=== PATIENT | female | born 1935 | race Caucasian/White ===

== ENCOUNTER → 2016-12-19 | Outpatient (CLI) | payer MEDICARE ==
[2016-12-19 09:07] LABS: BASOPHILS % (AUTO) 1 % (0-2); EOSINOPHILS # (AUTO) 0.2 10^3uL; EOSINOPHILS % (AUTO) 4 % (0-4); LYMPHOCYTES # (AUTO) 1.5 X10^3; MEAN CORPUSCULAR HGB CONC 32.4 g/dL (31.0-37.0); MEAN CORPUSCULAR VOLUME 97 FL (80-100); MEAN PLATELET VOLUME 10.9 FL (6.0-9.5); MONOCYTES # (AUTO) 0.7 X10^3; MONOCYTES % (AUTO) 13 % (3-11); NEUTROPHILS % (AUTO) 55 % (51-67); PLATELET COUNT 127 10^3uL (150-450); WHITE BLOOD COUNT 5.47 10^3uL (4.0-11.0)
[2016-12-19 09:11] LABS: MEAN CORPUSCULAR HEMOGLOBIN 31.3 PG (26.0-34.0)
[2016-12-19 09:48] LABS: ALBUMIN 4.3 g/dL (3.4-5.0); ANION GAP 16.5 MEQ/L (3-15); CALCULATED IONIZED CALCIUM 3.8 mg/dL (3.8-4.6); TOTAL PROTEIN 8.2 g/dL (6.4-8.5)
== END ==
LOC: LAB 08:36
PROVIDERS: ATTEND Internal Medicine
DX: Z00.00 Encounter for general adult medical examination without abnormal findings (principal); J47.9 Bronchiectasis, uncomplicated; R10.13 Epigastric pain; R03.0 Elevated blood-pressure reading, without diagnosis of hypertension; I10 Essential (primary) hypertension
CPT/HCPCS: 36415; 80053; 80061; 84443; 85025

== ENCOUNTER → 2016-12-22 | Outpatient (CLI) | payer MEDICARE ==
[2016-12-22 12:16] LABS: BILIRUBIN,URINE Negative (Negative); CLARITY,URINE Cloudy; COLOR,URINE Brown; GLUCOSE, URINE (UA) Negative (Negative); LEUKOCYTE ESTERASE ,URINE 3+ (Negative); PH,URINE 5.5 (5.0 - 8.0); UROBILINOGEN,URINE 0.2 mg/dL (0.2-1.0)
[2016-12-22 12:18] LABS: RBC,URINE TNTC /HPF; URINE CENTRIFUGED VOLUME <10mL Unspun
== END ==
LOC: LAB 11:57
PROVIDERS: ATTEND Internal Medicine
DX: R35.0 Frequency of micturition (principal); R82.99 Other abnormal findings in urine
CPT/HCPCS: 81003; 81015; 87077; 87088; 87186

== ENCOUNTER → 2017-01-04 | Outpatient (REF) | payer MEDICARE | LOC: LAB 09:33 → EDSTATUS 01-07 09:37 | PROVIDERS: ATTEND Internal Medicine | DX: R31.0 Gross hematuria (principal) | CPT/HCPCS: 87088 ==

== ENCOUNTER 2017-02-02 09:26 | Inpatient (IN) | payer MEDICARE ==
[~2017-02-02] VITALS: Ht 165.1 cm; Wt 63.4 kg
[2017-02-02] MEDS ORDERED: SODIUM CHLORIDE FLUSH 3 ML SYR IV PRN (10:00)
[2017-02-02] MEDS ORDERED: SODIUM CHLORIDE FLUSH 10 ML SYR IV PRN (10:00)
[2017-02-02] MEDS ORDERED: ONDANSETRON 2 MG/ML (Z0FRAN) 2 ML VIAL IV ONE (10:10)
[2017-02-02 10:16] LABS: BASOPHILS % (AUTO) 0 % (0-2); EOSINOPHILS # (AUTO) 0.1 10^3uL; EOSINOPHILS % (AUTO) 1 % (0-4); LYMPHOCYTES # (AUTO) 2.6 X10^3; MEAN CORPUSCULAR HGB CONC 33.2 g/dL (31.0-37.0); MEAN CORPUSCULAR VOLUME 94 FL (80-100); MONOCYTES # (AUTO) 1.4 X10^3; MONOCYTES % (AUTO) 14 % (3-11); NEUTROPHILS % (AUTO) 59 % (51-67); PLATELET COUNT 190 10^3uL (150-450)
[2017-02-02 10:26] LABS: ALBUMIN 5.3 g/dL (3.4-5.0); ANION GAP 28.7 MEQ/L (3-15); CALCULATED IONIZED CALCIUM 3.7 mg/dL (3.8-4.6); TOTAL PROTEIN 10.5 g/dL (6.4-8.5)
[2017-02-02] MEDS: OCTREOTIDE 100 MCG/ML (SandoSTATIN) 1 ML VIAL IV ONE ×2 (11:01→12:09)
[2017-02-02] MEDS ORDERED: DEXTROSE 50% 25 GM/50 ML SYRINGE IV ONE (11:45)
[2017-02-02] MEDS ORDERED: ALBUTEROL 0.5% NEB SOLUTION 2.5 MG/0.5 ML VIAL INH ONE (11:45)
[2017-02-02] MEDS ORDERED: INSULIN REGULAR 1 UNIT/0.01 ML DOSE SC ONE (11:45)
[2017-02-02] MEDS ORDERED: SODIUM CHLORIDE 0.9% NEB SOLN 3 ML VIAL ONE (11:58)
[2017-02-02 12:55] VITALS: BP 128/62
--- NOTE | 2017-02-02 12:57 | NUR ---
Patient admitted to room 315 per wheelchair from ER. Alert and able to ambulate with stand by assist. Fall precautions in place.
[2017-02-02 13:11] VITALS: BP 128/62
[2017-02-02] MEDS ORDERED: ACETAMINOPHEN 325 MG TAB (TYLENOL) PO PRN (13:50)
[2017-02-02] MEDS ORDERED: ONDANSETRON 2 MG/ML (Z0FRAN) 2 ML VIAL IV PRN (13:50)
--- NOTE | 2017-02-02 13:50 | NUR ---
Patient reports symptoms of sweating and feeling "flushed." Redness noted on face and chest. Skin is cool to touch. Blood glucose= 40.
--- NOTE | 2017-02-02 13:52 | NUR ---
Drank 4 ounces of orange juice. Patient is alert and speaks but moves very slowly. Able to drink juice without difficulty.
[2017-02-02] MEDS ORDERED: GLUCAGON EMERGENCY 1 MG/KIT ONE (13:53)
[2017-02-02 13:55] VITALS: BP 128/62
--- NOTE | 2017-02-02 13:55 | NUR ---
Gave 1 vial of GlucaGen SQ in the right upper arm.
--- NOTE | 2017-02-02 14:08 | NUR ---
Accu check= 48.
[2017-02-02] MEDS ORDERED: DEXTROSE ORAL GEL (GLUTOSE 40%) 15 GM TUBE PO PRN (14:10)
[2017-02-02] MEDS ORDERED: DEXTROSE 50% 25 GM/50 ML SYRINGE IV PRN (14:10)
[2017-02-02] MEDS ORDERED: GLUCAGON EMERGENCY 1 MG/KIT IM PRN (14:10)
[2017-02-02] MEDS ORDERED: HYDROcodone/APAP 7.5 MG/325 MG (NORCO) TABLET PO PRN (14:10)
--- NOTE | 2017-02-02 14:31 | NUR ---
Accu check= 79. Patient is speaking normally.
[2017-02-02 14:42] LABS: ANION GAP 24.5 MEQ/L (3-15)
--- NOTE | 2017-02-02 15:40 | NUR ---
Accu check= 113.
[2017-02-02 15:42] VITALS: BP 90/37
--- NOTE | 2017-02-02 16:05 | NUR ---
MED REC COMPLETE--current med list obtained from patient report (prescription bottles and pill boxes) and list provided by patient's PCP (Dr. Thomas).
[2017-02-02 17:00] VITALS: BP 110/50
--- NOTE | 2017-02-02 17:00 | NUR ---
V.S. rechecked. Systolic BP is over 100 at this time. Apical pulse still remains in the low 50's.
--- NOTE | 2017-02-02 17:45 | NUR ---
Accu check= 101. Patient has had no further complaints of flushing or sweating.
[2017-02-02 18:57] LABS: GLUCOSE, URINE (UA) Trace (Negative); LEUKOCYTE ESTERASE ,URINE Negative (Negative); UROBILINOGEN,URINE 0.2 mg/dL (0.2-1.0)
[2017-02-02 18:58] LABS: BILIRUBIN,URINE 1+ (Negative); CLARITY,URINE Slightly Cloudy; COLOR,URINE Dark Yellow; URINE CENTRIFUGED VOLUME 12 mL
--- NOTE | 2017-02-02 19:00 | NUR ---
Patient has finally voided 200 cc's- the first time since admission to the floor or the ER. Sample sent to lab.
[2017-02-02 19:03] LABS: RBC,URINE 20-50 /HPF
--- NOTE | 2017-02-02 20:37 | NUR ---
Pt placed on 2 l/min NC for noc per home use. IS instructed, 1200ml x 5 with good technique and breath hold.
--- NOTE | 2017-02-02 21:20 | NUR ---
Accucheck is 99 this evening; sliding scale insulin not ordered. Stool sample obtained and taken to lab. Pt. interactive with nighttime cares; preparing for sleep. Pt. is very pleasant and cooperative. O2 at 2L via NC for HS; pt. denies need for pain med at this time. Call light and H2O within reach.
[2017-02-03] VITALS: BP 99/50
--- NOTE | 2017-02-03 | NUR ---
Lab calls to report pt.'s stool sample positive for Norovirus. Contract Negotiation Manager notified; appropriate precautions taken. Pt. resting quietly; O2 at 2L for HS; resp are even and unlabored; appears to be in no distress. IVF infusing without difficulty; call light and H2O within reach.
[2017-02-03 06:05] LABS: MEAN CORPUSCULAR HEMOGLOBIN 31.2 PG (26.0-34.0); MEAN CORPUSCULAR HGB CONC 33.5 g/dL (31.0-37.0); MEAN CORPUSCULAR VOLUME 93 FL (80-100); MEAN PLATELET VOLUME 10.9 FL (6.0-9.5); PLATELET COUNT 156 10^3uL (150-450); WHITE BLOOD COUNT 6.74 10^3uL (4.0-11.0)
[2017-02-03 06:12] LABS: BAND NEUTROPHILS % 1 % (0-6); EOSINOPHILS % 1 % (0-4); LYMPHOCYTES # 1.7 #
[2017-02-03 06:13] LABS: MONOCYTES # 0.7 #; MONOCYTES % 12 % (3-11); RBC MORPH NORMAL (NORMAL); SEGMENTED NEUTROPHILS % 60 % (51-67); TOTAL CELLS COUNTED 100
[2017-02-03 06:28] VITALS: BP 146/54
--- NOTE | 2017-02-03 06:33 | NUR ---
Accucheck is 76 this morning; pt. is alert and orientated; denies discomfort; denies nausea; very cheerful. Pt. has called for stand by assist with ambulation PRN throughout the shift. Pt. proactive with ileostomy cares. Contact precautions observed. Telemetry has been sinus matt at rest; low 100's with activity. Pt. does not exhibit shortness of breath with ambulation or conversation. O2 at 2L via NC worn at HS only. H2O and call light within reach.
[2017-02-03 06:53] LABS: ALBUMIN 3.7 g/dL (3.4-5.0); CALCULATED IONIZED CALCIUM 3.6 mg/dL (3.8-4.6); TOTAL PROTEIN 7.3 g/dL (6.4-8.5)
[2017-02-03 07:46] VITALS: BP 106/56
--- NOTE | 2017-02-03 08:12 | NUR ---
NUTRITION ASSESSMENT Level 1 Patient: Shazia Briones Age/Sex: 81/F Date Screened: 02-03-17 Weight: 139.2#/63.3 kg Height: 65 inches Primary Diagnosis: renal injury Diet Order: CL Relevant labs: stool sample (+) norovirus, glucose 81 Food allergies: N Nutrition Assessment Criteria Age over 80: 4 points Body Mass Index (BMI) under 19: N Admission Screening Indicates Risk? N Moderate/High Risk Diagnosis: 3 points TPN or PPN: N NPO or clear liquid diet: Yes Serum Glucose <70 or >180: N Hgb A1c >6.7: N/A Total: 7 points Risk Screen: __ Patient at low nutritional risk based on available data; reevaluate in 5-7 days __ Patient at moderate nutritional risk based on available data; reevaluate in 3-5 days _X_ Patient at high nutritional risk; complete Nutrition Assessment within 48 hours of admission.
[2017-02-03] MEDS: predniSONE 5 MG (DELTASONE) TABLET PO SCH (08:38)
[2017-02-03] MEDS: CALCIUM CARBONATE CHEWABLE 300 MG (TUMS) TABLET PO SCH (08:38)
[2017-02-03] MEDS: LEFLUNOMIDE 10 MG TABLET PO SCH (08:39)
[2017-02-03] MEDS: ALBUTEROL/IPRATROPIUM 3MG-0.5MG/3ML (DUONEB) NEB VIAL INH SCH ×2 (09:03→21:00)
--- NOTE | 2017-02-03 10:46 | NUR ---
NUTRITION ASSESSMENT Level II Patient: Shazia Briones Age/Sex: 81/F Date Assessed: 02-03-17 ASSESSMENT Pertinent History: Patient admitted with renal injury from dehydration/norovirus and screened at high nutritional risk secondary to n/v/d and stated weight loss. However, compared with last documented weight in 2012 at 140#, pt. weighs the same. PMHx includes COPD, pancreatitis, rheumatoid arthritis, ulcerative colitis s/p ileostomy, diabetes, multiple compression fx's, nephrolithiasis and CHF. She lives at home with her . Meds/Nutrition: Prednisone, NS Weight: 139.2#/63.3 kg Height: 65 inches Body Mass Index (BMI): 23.2 [place] Body Weight : 125#/56.8 kg % IBW: 111% GASTROINTESTINAL Appetite: improving, eating 75-100% CL now Diet Order: CL Unintentional loss of >10 lbs. in 3 months: N Difficult to chew/swallow: N Diabetes: Yes Relevant Labs: glucose 81, stool sample (+) norovirus Calculations for Nutritional Assessment Estimated calorie needs: 25-28 kcals/kg = 1,575-1,760 kcals Estimated protein needs: 1.0-1.1 g/kg = 63-69 g./day DIAGNOSIS 1. Nutrition Diagnosis: acute inadequate intake related to acute illness as evidenced by n/v/d and norovirus with weakness. NUTRITIONAL INTERVENTION Goal: Patient will receive adequate nutrition to meet her needs. Plan: Will monitor intake for adequacy and tolerance to diet as advanced. MONITORING & EVALUATION __ Monitor patients menu selections _X_ Monitor patients food intake per nursing notes _X_ Monitor NPO/clear liquid days _X_ Monitor lab values __ Monitor I&O __ Other
--- NOTE | 2017-02-03 11:37 | NUR ---
Pt working with Diego LU. Keegan dc'd at this time as ordered.
[2017-02-03 12:00] VITALS: BP 112/50
[2017-02-03 16:30] VITALS: BP 120/60
--- NOTE | 2017-02-03 18:41 | NUR ---
Pt resting in bed, remains on RA. Denies needs. Ate 50% Regular supper meal. Denies n/v.
--- NOTE | 2017-02-03 20:00 | NUR ---
Resting in bed. Is alert and oriented. Skin warm and dry. Cheeks pink. Has low grade temp, but does not want any Tylenol. Denies any discomforts. IV patent at 100 cc an hour without complications at site. Call light within reach.
--- NOTE | 2017-02-03 20:26 | NUR ---
Pt found on RA while lying in bed, SPO2 98%, HR 68, RR 16 and non labored. BS clear. Pt does not want respiratory Tx tonight so as to keep with her home regimen.
--- NOTE | 2017-02-03 21:00 | NUR ---
Accu Check 107mg/dl. HS cares given Ileostomy bag emptied earlier. Denies pain or nausea.
[2017-02-04 00:39] VITALS: BP 121/55
[2017-02-04 05:47] LABS: MEAN CORPUSCULAR HEMOGLOBIN 30.9 PG (26.0-34.0); MEAN CORPUSCULAR HGB CONC 32.5 g/dL (31.0-37.0); MEAN CORPUSCULAR VOLUME 95 FL (80-100); MEAN PLATELET VOLUME 10.7 FL (6.0-9.5); PLATELET COUNT 142 10^3uL (150-450); WHITE BLOOD COUNT 5.96 10^3uL (4.0-11.0)
[2017-02-04 05:57] LABS: ANION GAP 10.9 MEQ/L (3-15)
--- NOTE | 2017-02-04 06:01 | NUR ---
Acu Check 75 mg/dl this morning. Patient felt like she rested well during the night. Did rest at longer intervals tonight, than last night. Denies pain or nausea. Ileostomy drain bile colored liquid. Droplet precautions maintained. Call light within reach.
[2017-02-04 06:18] LABS: BAND NEUTROPHILS % 3 % (0-6); LYMPHOCYTES # 1.7 #; MONOCYTES # 0.3 #; MONOCYTES % 6 % (3-11); SEGMENTED NEUTROPHILS % 60 % (51-67)
[2017-02-04 06:19] LABS: EOSINOPHILS % 2 % (0-4); RBC MORPH NORMAL (NORMAL); TOTAL CELLS COUNTED 100
[2017-02-04] MEDS: ALBUTEROL/IPRATROPIUM 3MG-0.5MG/3ML (DUONEB) NEB VIAL INH SCH ×2 (07:39→07:41)
--- NOTE | 2017-02-04 07:41 | NUR ---
Pt is awake and alert, sitting in recliner, tolerated tx well, on room air, SPO2 95%
[2017-02-04 07:43] VITALS: BP 130/52
[2017-02-04] MEDS: CALCIUM CARBONATE CHEWABLE 300 MG (TUMS) TABLET PO SCH (08:05)
[2017-02-04] MEDS: predniSONE 5 MG (DELTASONE) TABLET PO SCH (08:05)
[2017-02-04] MEDS: LEFLUNOMIDE 10 MG TABLET PO SCH (08:05)
--- NOTE | 2017-02-04 08:06 | NUR ---
Pt sitting up in chair eating regular bfst meal. Denies n/v. loose stools slowed overnight. more solidity noted to ileostomy bag-bile colored. Pt states she feels much better. Takes AM meds without difficulty. Call light within reach.
--- NOTE | 2017-02-04 08:27 | NUR ---
Arturo Sandy APRN at bedside. IV SL at this time. at bedside. call light within reach, yellow gown and socks in place.
--- NOTE | 2017-02-04 10:08 | NUR ---
Visited with Pt. and about discharge plans. Pt. is agreeable to home health services and would like to use [facility]. Home health services will be ordered along with PT/OT for Pt.
--- NOTE | 2017-02-04 11:10 | NUR ---
1100- 22g IV dc'd from LFA- tip intact, site without redness/swelling. 1105- Discharge instructions reviewed with patient and her . Verbalizes understanding. Home med Leflunomide returned to patient from med room. Pt requests to stay and eat lunch then dismiss after eating.
--- NOTE | 2017-02-04 13:01 | NUR ---
Pt dismissed to home via w/c accompanied by . Safia Mcwilliams CNA escorted to car.
== END 2017-02-04 13:00 | disposition home health service (06) | DRG 641 ==
LOC: EDUNIT# 09:26 → ED 09:28 → MED/SURG 12:05
PROVIDERS: ADMIT Family Medicine; ATTEND Family Medicine
DX: E86.0 Dehydration (principal); A08.39 Other viral enteritis; N17.9 Acute kidney failure, unspecified; I50.22 Chronic systolic (congestive) heart failure; E87.5 Hyperkalemia; E11.649 Type 2 diabetes mellitus with hypoglycemia without coma; M06.9 Rheumatoid arthritis, unspecified; J44.9 Chronic obstructive pulmonary disease, unspecified; Z93.2 Ileostomy status; Z86.718 Personal history of other venous thrombosis and embolism; Z87.440 Personal history of urinary (tract) infections
CPT/HCPCS: 36415; 74022; 80048; 80053; 81003; 81015; 82803; 84132; 84443; 85025; 87507; 93005; 93010; 94640; 96361; 96374; 96375; 99284

== ENCOUNTER 2017-02-08 02:59 | Inpatient (IN) | payer MEDICARE ==
[~2017-02-08] VITALS: Ht 160 cm; Wt 63.7 kg
[2017-02-08] MEDS ORDERED: SODIUM CHLORIDE FLUSH 10 ML SYR IV PRN (03:40)
[2017-02-08] MEDS ORDERED: SODIUM CHLORIDE FLUSH 3 ML SYR IV PRN (03:40)
[2017-02-08 03:55] LABS: MEAN CORPUSCULAR HEMOGLOBIN 30.7 PG (26.0-34.0); MEAN CORPUSCULAR HGB CONC 33.6 g/dL (31.0-37.0); MEAN CORPUSCULAR VOLUME 91 FL (80-100); PLATELET COUNT 175 10^3uL (150-450); WHITE BLOOD COUNT 8.39 10^3uL (4.0-11.0)
[2017-02-08] MEDS: SIMETHICONE 40 MG/0.6 ML (MYLICON DROPS) ORAL SYRINGE PO ONE ×2 (04:05→04:17)
[2017-02-08] MEDS: ACETAMINOPHEN SUSPENSION 160 MG/5 ML (TYLENOL) UDC PO ONE ×2 (04:05→04:17)
[2017-02-08] MEDS ORDERED: ONDANSETRON 2 MG/ML (Z0FRAN) 2 ML VIAL IV ONE (04:05)
--- NOTE | 2017-02-08 04:05 | NUR ---
Patient reports increased nausea, also beltching several times. Reported to Dr. Segovia
[2017-02-08 04:07] LABS: ALBUMIN 4.3 g/dL (3.4-5.0); ANION GAP 16.5 MEQ/L (3-15); CALCULATED IONIZED CALCIUM 3.7 mg/dL (3.8-4.6); TOTAL PROTEIN 8.1 g/dL (6.4-8.5)
[2017-02-08 04:09] LABS: BAND NEUTROPHILS % 1 % (0-6); EOSINOPHILS % 5 % (0-4); LYMPHOCYTES # 2.5 #; MONOCYTES % 12 % (3-11); RBC MORPH NORMAL (NORMAL); SEGMENTED NEUTROPHILS % 51 % (51-67); TOTAL CELLS COUNTED 100
[2017-02-08] MEDS ORDERED: HYDROmorphone 1 MG/ML (DILAUDID) SYRINGE IV ONE ×2 (04:20→05:20)
[2017-02-08 05:18] LABS: BILIRUBIN,URINE Negative (Negative); CLARITY,URINE Clear; COLOR,URINE Yellow; GLUCOSE, URINE (UA) Negative (Negative); LEUKOCYTE ESTERASE ,URINE Negative (Negative); PH,URINE 5.5 (5.0 - 8.0); UROBILINOGEN,URINE 0.2 mg/dL (0.2-1.0)
[2017-02-08 05:24] LABS: URINE CENTRIFUGED VOLUME 12 mL
[2017-02-08] MEDS ORDERED: ONDANSETRON 2 MG/ML (Z0FRAN) 2 ML VIAL IV PRN (06:25)
[2017-02-08] MEDS ORDERED: ACETAMINOPHEN 325 MG TAB (TYLENOL) PO PRN (06:25)
[2017-02-08 06:28] VITALS: BP 107/79
[2017-02-08 06:29] VITALS: BP 107/79
--- NOTE | 2017-02-08 06:40 | NUR ---
Dr Real assesses pt via remote monitoring.
[2017-02-08] MEDS ORDERED: ALBUTEROL 0.083% NEB SOLUTION 2.5 MG/3 ML VIAL INH PRN (07:30)
[2017-02-08] MEDS ORDERED: HYDROcodone/APAP 5 MG/325 MG (NORCO) TAB PO PRN (07:30)
[2017-02-08] MEDS: HYDROmorphone 1 MG/ML (DILAUDID) SYRINGE IV PRN ×2 (07:37→11:47)
--- NOTE | 2017-02-08 07:40 | NUR ---
Pt c/o left sided abd/rib pain rated 6/10- Dilaudid 0.5mg IV given now. NS Bolus @500ml/hr x1 infusing as ordered. at bedside. call light within reach. Dr. Arizmendi at bedside.
--- NOTE | 2017-02-08 07:54 | NUR ---
Pt to Radiology for Acute Abd Series
[2017-02-08 07:55] VITALS: BP 102/39
--- NOTE | 2017-02-08 08:04 | NUR ---
Pt returns to room via w/c from Radiology
[2017-02-08] MEDS ORDERED: lisINopril 10 MG (PRINIVIL) TABLET PO SCH (09:00)
--- NOTE | 2017-02-08 09:57 | NUR ---
Pt remains NPO as ordered until Dr. Arizmendi has results of US. Pt educated about this- verbalizes understanding. NS@100ml/hr infusing without difficulty. call light within reach.
--- NOTE | 2017-02-08 10:10 | NUR ---
Med Rec completed via conversation with patient who states that her meds have not changed since her last dismissal 02/04/17.
[2017-02-08] MEDS ORDERED: ALBUTEROL/IPRATROPIUM 3MG-0.5MG/3ML (DUONEB) NEB VIAL INH SCH (11:00)
--- NOTE | 2017-02-08 11:10 | NUR ---
Pt found lying in bed on RA, SPO2 98%, HR 56, RR 16 and non labored at this tome with clear BS before and after Duoneb via SVN which was tolerated well. Pt stated that she only takes one breathing treatment daily every morning and would like to follow that schedule. Dr Arizmendi will be consulted with patients wishes.
[2017-02-08 11:23] VITALS: BP 93/51
--- NOTE | 2017-02-08 11:46 | NUR ---
Pt reports Left sided abdominal pain is increasing again- rated 06/07- Dilaudid 0.5mg IV given as ordered.
[2017-02-08] MEDS ORDERED: MAGNESIUM HYDROXIDE 80MG/ML (MILK OF MAGNESIA) 30 ML UDC PO PRN (11:50)
[2017-02-08] MEDS ORDERED: DOCUSATE SODIUM 100 MG (COLACE) CAP PO PRN (11:50)
[2017-02-08] MEDS ORDERED: POLYETHYLENE GLYCOL 17 GM (MIRALAX) PACKET PO PRN (11:50)
--- NOTE | 2017-02-08 12:21 | NUR ---
This nurse called [facility]- spoke to [facility] to let them know that patient was admitted- pt states she was scheduled for them to see her today. Addendum: 02/08/17 at 1222 by Danya Ch RN Tele allen'lisa per Dr. Ugo ZABALA
[2017-02-08] MEDS: predniSONE 5 MG (DELTASONE) TABLET PO SCH (12:28)
[2017-02-08] MEDS ORDERED: ALBUTEROL/IPRATROPIUM 3MG-0.5MG/3ML (DUONEB) NEB VIAL INH PRN (13:00)
[2017-02-08] MEDS ORDERED: DEXTROSE 50% 25 GM/50 ML SYRINGE IV PRN (13:20)
[2017-02-08] MEDS ORDERED: DEXTROSE ORAL GEL (GLUTOSE 40%) 15 GM TUBE PO PRN (13:20)
--- NOTE | 2017-02-08 14:23 | NUR ---
MULTIDISCIPLINARY MTG/DR. MIDDLETON: Pt. experiencing left upper quadrant pain and also has another JOCELYNE. Pt. had imaging this morning which showed a kidney stone with no obstruction. Pt. also has an ileus. Checked Pt. amylase and lipase and it is 2x the ULN. Will recheck again in the morning. Will treat Pt. as if she has pancreatitis. Pt. receiving IVF and will strain her urine. Once Pt. is discharged will need to contact [facility] to notify of discharge so they can start services.
[2017-02-08] MEDS: LACTATED RINGERS 1,000 ML IV SCH ×2 (17:10→23:53)
--- NOTE | 2017-02-08 19:25 | NUR ---
Pt seen and assessed. Denies pain at this time.
[2017-02-08] MEDS ORDERED: ATORVASTATIN 10 MG (LIPITOR) TABLET PO SCH (21:00)
[2017-02-08 23:46] VITALS: BP 96/40
--- NOTE | 2017-02-09 05:52 | NUR ---
Uneventful shift; Pt rests well throughout the night. No c/o pain. IVF infuse w/o difficulty. Resp even and non labored on RA.
[2017-02-09 06:10] LABS: MEAN CORPUSCULAR HGB CONC 32.9 g/dL (31.0-37.0); MEAN CORPUSCULAR VOLUME 94 FL (80-100); PLATELET COUNT 157 10^3uL (150-450)
[2017-02-09 06:49] LABS: BAND NEUTROPHILS % 3 % (0-6); EOSINOPHILS % 8 % (0-4); LYMPHOCYTES # 1.9 #; MONOCYTES # 0.6 #; MONOCYTES % 10 % (3-11); SEGMENTED NEUTROPHILS % 51 % (51-67); TOTAL CELLS COUNTED 100
[2017-02-09 06:50] LABS: RBC MORPH NORMAL (NORMAL)
[2017-02-09 06:53] LABS: ALBUMIN 3.2 g/dL (3.4-5.0); CALCULATED IONIZED CALCIUM 3.8 mg/dL (3.8-4.6); TOTAL PROTEIN 6.5 g/dL (6.4-8.5)
[2017-02-09 08:07] VITALS: BP 107/43
--- NOTE | 2017-02-09 08:34 | NUR ---
NUTRITION ASSESSMENT Level 1 Patient: Shazia Briones Age/Sex: 81/F Date Screened: 02-09-17 Weight: 141.9#/64.5 kg Height: 63 inches Primary Diagnosis: LUQ pain, ileus, acute kidney injury Diet Order: NPO Relevant labs: glucose 73, amylase 142, lipase 218 Food allergies: N Nutrition Assessment Criteria Age over 80: 4 points Body Mass Index (BMI) under 19: N Admission Screening Indicates Risk? 3 points Moderate/High Risk Diagnosis: 3 points TPN or PPN: N NPO or clear liquid diet: Yes Serum Glucose <70 or >180: N Hgb A1c >6.7: N/A Total: 10 points Risk Screen: __ Patient at low nutritional risk based on available data; reevaluate in 5-7 days __ Patient at moderate nutritional risk based on available data; reevaluate in 3-5 days _X_ Patient at high nutritional risk; complete Nutrition Assessment within 48 hours of admission.
[2017-02-09] MEDS: lisINopril 5 MG (PRINIVIL) TABLET PO SCH (08:35)
[2017-02-09] MEDS: predniSONE 5 MG (DELTASONE) TABLET PO SCH (08:35)
[2017-02-09] MEDS: ENOXAPARIN 30 MG/0.3 ML (LOVENOX) SYR SC SCH (08:36)
[2017-02-09] MEDS: ALBUTEROL/IPRATROPIUM 3MG-0.5MG/3ML (DUONEB) NEB VIAL INH SCH (09:29)
[2017-02-09] MEDS: ACIDOPHILUS/LACTOBACILLUS SPOROGENES 1 TABLET PO SCH (11:02)
[2017-02-09] MEDS: ACYCLOVIR 200 MG CAP (ZOVIRAX) PO SCH (11:02)
[2017-02-09] MEDS: FOLIC ACID 0.4 MG TABLET PO SCH (11:03)
[2017-02-09] MEDS: MULTIVITAMIN W/MINERALS (THERAGRAN M) TABLET PO SCH (11:03)
[2017-02-09] MEDS: POTASSIUM CHLORIDE ER 10 MEQ CAPSULE PO SCH (11:03)
[2017-02-09] MEDS: CYANOCOBALAMIN 1000 MCG (VITAMIN B-12) TABLET PO SCH ×2 (11:03→20:29)
--- NOTE | 2017-02-09 11:42 | NUR ---
NUTRITION ASSESSMENT Level II Patient: Shazia Briones Age/Sex: 81/F Date Assessed: 02-09-17 ASSESSMENT Pertinent History: Patient admitted with LUQ pain, ileus and acute kidney injury, and screened at high nutritional risk secondary to recent hospitalization (independent risk factor), diagnosis, and recent n/v/d concerning for poor p.o. intake over an extended period of time. PMHx includes COPD, pancreatitis, rheumatoid arthritis, ulcerative colitis s/p ileostomy, diabetes, multiple compression fx's, nephrolithiasis and CHF. She lives at home with her . Most recent weight was 139.2# on 02-03-17. Meds/Nutrition: Tums, vitamin D, fish oil, KCl, MVI, Lactobacillus acidophilus, vitamin B12, folic acid Weight: 141.9#/64.5 kg Height: 63 inches Body Mass Index (BMI): 25.2 [place] Body Weight : 115#/52.2 kg % IBW: 123% GASTROINTESTINAL Appetite: stated fair on admission Diet Order: CL Unintentional loss of >10 lbs. in 3 months: N Difficult to chew/swallow: N Diabetes: Yes Relevant Labs: glucose 73, amylase 142, lipase 218 Calculations for Nutritional Assessment Estimated calorie needs: 25-28 kcals/kg = 1,600-1,790 kcals Estimated protein needs: 1.0-1.2 g/kg = 64-76 g./day DIAGNOSIS 1. Nutrition Diagnosis: Potential for inadequate intake related to acute illness/abdominal pain as evidenced by symptoms of pain/ileus in elderly female. NUTRITIONAL INTERVENTION Goal: Patient will receive adequate nutrition to meet her needs. Plan: Will monitor tolerance to diet as advanced and intake for adequacy. Noted diet was just advanced to CL for lunch today. When diet is advanced past CL, will emphasize protein at all meals; may benefit from smaller, more frequent meals until appetite returns to normal. MONITORING & EVALUATION __ Monitor patients menu selections _X_ Monitor patients food intake per nursing notes _X_ Monitor NPO/clear liquid days __ Monitor lab values __ Monitor I&O
[2017-02-09 16:00] VITALS: BP 112/43
[2017-02-09] MEDS: OMEGA-3 FATTY ACIDS (FISH OIL) 500 MG CAPSULE PO SCH (18:11)
--- NOTE | 2017-02-09 18:33 | NUR ---
Pt resting in bed, visitors in room. Pt has denied pain this shift. Skin warm, dry, intact. Resprs nonlabored, even on RA. Up with SBA to RR. Home medications brought back up to floor by , pt states she does not want to take them back home for fear of him losing them. Home meds given to Deepa Sutton, who returned medications to med room. SL intact. Pt denies needs at this time. Will call for assistance.
--- NOTE | 2017-02-09 19:54 | NUR ---
Pt found lying in bed on RA, SPO2 98%, HR 62, RR 16 and non labored at this time. Mo PRN indicated. Pt prefers to not use O2 at noc unless necessary.
[2017-02-09] MEDS: CHOLECALCIFEROL 1000 INT UNITS (VITAMIN D3) TABLET PO SCH (20:29)
[2017-02-09 23:55] VITALS: BP 156/55
--- NOTE | 2017-02-10 02:52 | NUR ---
Pt states she has a "twinge" of left upper quad pain. Rates it at 1-01/08. PRN norco provided per pt request.
--- NOTE | 2017-02-10 06:34 | NUR ---
Pt states that the pain in her LUQ is "better at times, but then I just don't know." Resp even and non labored on RA. SL intact. No further needs at this time.
[2017-02-10] MEDS ORDERED: ASPIRIN 81 MG CHEW (CHILDREN'S ASA) PO SCH (07:30)
--- NOTE | 2017-02-10 07:30 | NUR ---
Patient awake in bed upon shift assessment. Alert and oriented X3. Denies LUQ pain, nausea, SOA, or other distress. Reports not sleeping well but pain was not a contributing factor. HR matt at a rate of 54. Lung sounds CTAB. Does report tenderness when touching LUQ of abdomen. Bowel sounds active. Patient reports moderate output of out of ileostomy. Updated on plan of care for shift. Call light in reach.
[2017-02-10 07:53] VITALS: BP 118/41
[2017-02-10] MEDS: lisINopril 5 MG (PRINIVIL) TABLET PO SCH (08:41)
[2017-02-10] MEDS: ACIDOPHILUS/LACTOBACILLUS SPOROGENES 1 TABLET PO SCH (08:53)
[2017-02-10] MEDS: OMEGA-3 FATTY ACIDS (FISH OIL) 500 MG CAPSULE PO SCH ×2 (08:54→17:35)
[2017-02-10] MEDS: POTASSIUM CHLORIDE ER 10 MEQ CAPSULE PO SCH (08:54)
[2017-02-10] MEDS: predniSONE 5 MG (DELTASONE) TABLET PO SCH (08:54)
[2017-02-10] MEDS: FOLIC ACID 0.4 MG TABLET PO SCH (08:54)
[2017-02-10] MEDS: MULTIVITAMIN W/MINERALS (THERAGRAN M) TABLET PO SCH (08:54)
[2017-02-10] MEDS: CYANOCOBALAMIN 1000 MCG (VITAMIN B-12) TABLET PO SCH ×2 (08:54→20:18)
[2017-02-10] MEDS: CALCIUM CARBONATE CHEWABLE 300 MG (TUMS) TABLET PO SCH (08:54)
[2017-02-10] MEDS: ACYCLOVIR 200 MG CAP (ZOVIRAX) PO SCH (08:54)
[2017-02-10] MEDS: CHOLECALCIFEROL 1000 INT UNITS (VITAMIN D3) TABLET PO SCH ×2 (08:54→20:18)
[2017-02-10] MEDS: ENOXAPARIN 30 MG/0.3 ML (LOVENOX) SYR SC SCH (08:54)
[2017-02-10] MEDS: ALBUTEROL/IPRATROPIUM 3MG-0.5MG/3ML (DUONEB) NEB VIAL INH SCH (09:44)
[2017-02-10 15:51] VITALS: BP 111/53
--- NOTE | 2017-02-10 18:17 | NUR ---
Patient tolerates surgical soft lunch and supper well without abdominal pain. Denies pain throughout day shift. Ambulates to bathroom and chair with steady gate. Pleasant and cooperative with cares. Call light in reach.
--- NOTE | 2017-02-10 20:20 | NUR ---
Pt. takes PO meds without difficulty; denies pain; very conversational and pleasant. Call light and H2O within reach.
--- NOTE | 2017-02-10 20:31 | NUR ---
Pt on RA, no PRN indicated
[2017-02-11 00:13] VITALS: BP 113/86
--- NOTE | 2017-02-11 02:00 | NUR ---
Pt. resting quietly; resp are even and unlabored on room air; appears to be in no distress. Pt. chose to not wear O2 this night; SATS have reflected 96-98%.
--- NOTE | 2017-02-11 06:25 | NUR ---
Pt. had an unremarkable shift; denies pain/nausea. Pt. provided self-care with ileostomy; called for assist PRN; pleasant and cheerful.
[2017-02-11 07:32] VITALS: BP 130/51
[2017-02-11] MEDS: ALBUTEROL/IPRATROPIUM 3MG-0.5MG/3ML (DUONEB) NEB VIAL INH SCH (07:49)
[2017-02-11] MEDS: MULTIVITAMIN W/MINERALS (THERAGRAN M) TABLET PO SCH (08:56)
[2017-02-11] MEDS: CHOLECALCIFEROL 1000 INT UNITS (VITAMIN D3) TABLET PO SCH (08:56)
[2017-02-11] MEDS: POTASSIUM CHLORIDE ER 10 MEQ CAPSULE PO SCH (08:56)
[2017-02-11] MEDS: CYANOCOBALAMIN 1000 MCG (VITAMIN B-12) TABLET PO SCH (08:56)
[2017-02-11] MEDS: ACIDOPHILUS/LACTOBACILLUS SPOROGENES 1 TABLET PO SCH (08:56)
[2017-02-11] MEDS: ACYCLOVIR 200 MG CAP (ZOVIRAX) PO SCH (08:56)
[2017-02-11] MEDS: CALCIUM CARBONATE CHEWABLE 300 MG (TUMS) TABLET PO SCH (08:56)
[2017-02-11] MEDS: lisINopril 5 MG (PRINIVIL) TABLET PO SCH (08:57)
[2017-02-11] MEDS: OMEGA-3 FATTY ACIDS (FISH OIL) 500 MG CAPSULE PO SCH (08:57)
[2017-02-11] MEDS: predniSONE 5 MG (DELTASONE) TABLET PO SCH (08:57)
[2017-02-11] MEDS: FOLIC ACID 0.4 MG TABLET PO SCH (08:57)
[2017-02-11] MEDS: ENOXAPARIN 30 MG/0.3 ML (LOVENOX) SYR SC SCH (09:00)
--- NOTE | 2017-02-11 12:57 | NUR ---
Discharge instructions reviewed with patient, demonstrates understanding. SL removed with catheter tip intact. Home medications returned to patient from pharmacy and med room. Skin warm, dry, intact. Resprs nonlabored, even on RA. Pt dismissed at this time via w/c accompanied by Aleksandra Liu CNA and . Appreciative of cares.
== END 2017-02-11 12:55 | disposition home or self-care (01) | DRG 683 ==
LOC: ED 03:02 → MED/SURG 06:05
PROVIDERS: ADMIT Emergency Medicine; ATTEND Emergency Medicine
DX: N17.9 Acute kidney failure, unspecified (principal); K56.7 Ileus, unspecified; E87.1 Hypo-osmolality and hyponatremia; J84.9 Interstitial pulmonary disease, unspecified; Z66 Do not resuscitate; R10.12 Left upper quadrant pain; N13.2 Hydronephrosis with renal and ureteral calculous obstruction; E86.0 Dehydration; J44.9 Chronic obstructive pulmonary disease, unspecified; M06.9 Rheumatoid arthritis, unspecified; E11.9 Type 2 diabetes mellitus without complications; I10 Essential (primary) hypertension; Z93.2 Ileostomy status; Z79.82 Long term (current) use of aspirin; Z79.52 Long term (current) use of systemic steroids; Z86.718 Personal history of other venous thrombosis and embolism
CPT/HCPCS: 36415; 74000; 74022; 76700; 80053; 81003; 81015; 82150; 83690; 85025; 86140; 94640; 96361; 96374; 96375; 99283

== ENCOUNTER → 2017-02-15 | Outpatient (REF) | payer MEDICARE ==
[2017-02-15 11:40] LABS: BASOPHILS % (AUTO) 1 % (0-2); EOSINOPHILS # (AUTO) 0.1 10^3uL; EOSINOPHILS % (AUTO) 2 % (0-4); LYMPHOCYTES # (AUTO) 1.1 X10^3; MEAN CORPUSCULAR HEMOGLOBIN 30.5 PG (26.0-34.0); MEAN PLATELET VOLUME 10.9 FL (6.0-9.5); MONOCYTES # (AUTO) 0.6 X10^3; MONOCYTES % (AUTO) 8 % (3-11); NEUTROPHILS # (AUTO) 5.2 X10^3; NEUTROPHILS % (AUTO) 74 % (51-67); PLATELET COUNT 161 10^3uL (150-450); WHITE BLOOD COUNT 7.02 10^3uL (4.0-11.0)
[2017-02-15 11:41] LABS: MEAN CORPUSCULAR HGB CONC 31.3 g/dL (31.0-37.0); MEAN CORPUSCULAR VOLUME 98 FL (80-100)
[2017-02-15 11:57] LABS: ANION GAP 16.8 MEQ/L (3-15)
== END ==
LOC: LAB 11:27
PROVIDERS: ATTEND Internal Medicine
DX: Z00.00 Encounter for general adult medical examination without abnormal findings (principal); R53.1 Weakness; I10 Essential (primary) hypertension
CPT/HCPCS: 80048; 84450; 85025; 86140